=== PATIENT | male | born 2005 | race Caucasian/White ===

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

== ENCOUNTER 2023-04-14 07:03 | Outpatient (CLI) | payer MEDICAID ==
--- NOTE | 2023-04-14 11:06 | Ultrasound Report ---
PROCEDURE: Abdomen Complete INDICATIONS: ABD PAIN TECHNIQUE: Real-time scanning was performed of the abdominal and retroperitoneal organs, with image documentatio n. COMPARISON: None. FINDINGS: Liver: Liver measures 11 cm. Mildly increased echotextur, questionable. Gallbladder: Unremarkable. Biliary ducts: Intrahepatic bile ducts are non-dilated. Extrahepatic bile duct caliber measures 5 m m. Normal is 6-7 mm or less in diameter, or 10 mm or less post-cholecystectomy. Pancreas: Visualized portions of the pancreas are sonographically normal. Spleen: Spleen measures 12 to 13 cm, at the upper limit of normal. Kidneys: Kidneys are normal in size and echotexture. Right kidney measures 12 cm long; left kidney measures 13 cm long. No hydronephrosis or nephrolithiasis. No solid masses. No complex renal cystic lesions which require follow-up. Aorta: Visualized aorta is normal in caliber at less than 3 cm. Iliacs: Proximal common iliac arteries are normal in caliber at less than 2.5 cm. IVC: Intrahepatic inferior vena cava is patent. Miscellaneous: No free abdominal fluid. IMPRESSION: No acute sonographic abnormality. Questionably increased hepatic echotexture is nonspecific, most com monly due to steatosis. Spleen size at the upper limit of normal, measuring 12 13 cm. Reviewed by: Chucky Maradiaga MD on 04/14/2023 11:05 AM PDT Approved by: Chucky Maradiaga MD on 04/14/2023 11:05 AM PDT Station ID: [id number]
== END 2023-04-14 07:04 | disposition home or self-care (01) ==
LOC: DI 07:03
PROVIDERS: ATTEND Pediatrics
DX: R10.9 Unspecified abdominal pain (principal)